=== PATIENT | female | born 1965 | race American Indian/Alaskan Native ===

== ENCOUNTER 2017-02-12 14:13 | Emergency (ER) | payer OTHER ==
[2017-02-12 15:46] VITALS: BP 130/95
--- NOTE | 2017-02-12 16:50 | Emergency Department Report ---
HPI - General Chief Complaint: Pain General Time Seen by Provider: 02/12/17 16:34 - HPI HPI: 51-year-old female presents to the ED complaining of right ankle pain 6 months. Patient states in August she fell and hurt her ankle and elbow. She states she was doing she has had continued throbbing type pain in her ankle. Patient states she was initially seen here and was given some medication. Patient states he got better but then continued at a later date. Patient denies recent injury or trauma to the ankle. Patient denies fevers/chills/nausea/vomiting/abdominal pain/calf tenderness bilaterally/headache/blurred vision or any other problems. ED Past Medical Hx - Past Medical History Previous Medical History?: Yes Hx HIV: Yes - Surgical History Past Surgical History?: Yes Additional Surgical History: cataract surgery right eye. cervical surgery x 2 "abnormal cells" - Social History Smoking Status: Never Smoker Substance Use Type: None - Medications Home Medications: Home Medications Medication Instructions Recorded Confirmed Last Taken Type Naproxen [Naprosyn] 500 mg PO BID #20 tablet 03/14/14 Unknown Rx Permethrin 5% [Acticin 5% CREAM] 1 applicatio TP ONCE #1 tube 02/04/15 Unknown Rx hydrOXYzine PAMOATE [Vistaril] 25 mg PO Q6HR PRN #30 capsule 02/04/15 Unknown Rx Diclofenac Sodium 75 mg PO BID #20 tablet. 02/12/17 Unknown Rx traMADol [Ultram 50 MG tab] 50 mg PO Q6HR PRN #14 tablet 02/12/17 Unknown Rx ED Review of Systems ROS: Stated complaint: FALL X 6MONTH/BACK AND ANKLE Other details as noted in HPI Constitutional: denies: chills, fever Eyes: denies: eye pain, eye discharge, vision change ENT: denies: ear pain, throat pain Respiratory: denies: cough, shortness of breath, wheezing Cardiovascular: denies: chest pain, palpitations Endocrine: no symptoms reported Gastrointestinal: denies: abdominal pain, nausea, diarrhea Genitourinary: denies: urgency, dysuria, discharge Musculoskeletal: arthralgia. denies: back pain, joint swelling, myalgia Skin: denies: rash, lesions, pruritus Neurological: denies: headache, weakness, numbness, paresthesias, confusion, abnormal gait Psychiatric: denies: anxiety, depression Hematological/Lymphatic: denies: easy bleeding, easy bruising Physical Exam - Physical Exam Vital Signs: Vital Signs 02/12/17 15:39 Temperature 98.1 F Pulse Rate 67 Respiratory 16 Rate Blood Pressure 130/95 O2 Sat by Pulse 100 Oximetry Physical Exam: GENERAL: Alert and oriented x3, no apparent distress, Normal Gait, atraumatic. HEAD: Head is normocephalic and a-traumatic. EYES: Extra ocular muscles are intact. Pupils are equal, round, and reactive to light and accommodation. MOUTH:Mouth is well hydrated and without lesions.. Patent airways. NECK: Supple. Non edematous, No carotid bruits. No lymphadenopathy or thyromegaly. LUNGS: Symetrical with respiration, No wheezing, no rales or crackles, CTAB. HEART: S1, S2 present, regular rate and rhythm without murmur, no rubs, no gallops. ABDOMEN: No organomegaly was noted,Positive bowel sounds, soft, and non- distended. . Nontender to palpation on all Quadrants, NO CVA tenderness. EXTREMITIES/MUSCULOSKELETAL: No cyanosis, clubbing, rash, lesions or edema. Full ROM bilaterally. UE/LE Pulses 2+ bilaterally. LE and UE 5+ strength bilaterally. Tenderness to palpation of the lateral aspect of the left ankle. Nonedematous, non-erythematous. No bruising no open wound.. Eli is a healed scab on anterior left leg proximal to the knee NEUROLOGIC: No focal Deficit, Cranial nerves II through XII are grossly intact. No loss of sensation, PSYCHIATRIC: Mood is congruent with affect, denies suicidal or homicidal ideations. SKIN: Warm and dry, No lesions, No ulceration or induration present. ED Course Vital Signs 02/12/17 15:39 Temperature 98.1 F Pulse Rate 67 Respiratory 16 Rate Blood Pressure 130/95 O2 Sat by Pulse 100 Oximetry ED Medical Decision Making - Medical Decision Making 51-year-old female presents with chronic pain of the leftt ankle. ED course: Patient received 60 mg of Toradol IM. Discussed the patient would need primary care physician referral and follow-up for chronic management of pain Discussed course of the referral to follow up as wall. Discussed the patient home medication for pain symptoms. Patient verbally states she will follow-up with orthopedics and primary practice. Vital signs are stable. Patient is in no acute or respiratory distress. Critical care attestation.: If time is entered above; I have spent that time in minutes in the direct care of this critically ill patient, excluding procedure time. ED Disposition Clinical Impression: Left ankle strain Qualifiers: Encounter type: subsequent encounter Qualified Code(s): S96.912D - Strain of unspecified muscle and tendon at ankle and foot level, left foot, subsequent encounter Chronic ankle pain Qualifiers: Laterality: right Qualified Code(s): M25.571 - Pain in right ankle and joints of right foot; G89.29 - Other chronic pain Disposition: DISCHARGED TO HOME OR SELFCARE Is pt being admited?: No Does the pt Need Aspirin: No Condition: Stable Instructions: Arthralgia (ED) Prescriptions: Diclofenac Sodium 75 mg PO BID #20 tablet. traMADol [Ultram 50 MG tab] 50 mg PO Q6HR PRN #14 tablet PRN Reason: Pain Referrals: PRIMARY CARE, [Primary Care Provider] - 3-5 Days MERLIN DOMÍNGUEZ MD [Referring] - 3-5 Days MARIJA JACOBS MD [Referring] - 3-5 Days SANTA HURD MD [Referring] - 3-5 Days EDU CALDWELL MD [Staff Physician] - 3-5 Days SADIE SAMRIENTO MD [Staff Physician] - 3-5 Days Forms: Accompanied Note, Work/School Release Form(ED) Time of Disposition: 17:30
[2017-02-12] MEDS ORDERED: TORADOL IM ONE (17:11)
== END 2017-02-12 17:40 | disposition home or self-care (01) ==
LOC: ED 14:13
DX: S96.912D Strain of unspecified muscle and tendon at ankle and foot level, left foot, subsequent encounter (principal); W18.30XA Fall on same level, unspecified, initial encounter; Y93.9 Activity, unspecified; Y92.89 Other specified places as the place of occurrence of the external cause; Y99.9 Unspecified external cause status
CPT/HCPCS: 96372; 99282; J1885